=== PATIENT | female | born 1960 | race Caucasian/White ===

== ENCOUNTER 2019-04-17 07:43 | Day surgery (SDC) | payer OTHER ==
[2019-04-16 15:46] LABS: CLARITY,URINE CLEAR (Clear); COLOR,URINE STRAW (Yellow); GLUCOSE, URINE NEGATIVE (Neg); KETONES,URINE NEGATIVE (Neg); LEUKOCYTE ESTERASE ,URINE SMALL (Neg); NITRITES, URINE NEGATIVE (Neg); OCCULT BLOOD,URINE NEGATIVE (Neg); PH,URINE 6.5 (4.8-8.0); PROTEIN,URINE NEGATIVE (Neg); UROBILINOGEN,URINE 0.2 E.U/dL (0.2-1.0)
[2019-04-16 15:47] LABS: UA COLLECTION TYPE CLN CATCH MIDSTREAM
[2019-04-16 15:48] LABS: BASOPHILS % (AUTO) 0.7 % (0-1); EOSINOPHILS # (AUTO) 0.1 X10'3 (0-0.9); LYMPHOCYTES # (AUTO) 1.2 X10'3 (1.1-4.8); LYMPHOCYTES % (AUTO) 22.4 % (21-51); MEAN CORPUSCULAR HEMOGLOBIN 30.1 PG (27.0-31.0); MEAN CORPUSCULAR VOLUME 88.3 FL (78-98); MEAN PLATELET VOLUME 8.5 FL (7.4-10.4); MONOCYTES # (AUTO) 0.5 X10'3 (0-0.9); MONOCYTES % (AUTO) 9.5 % (2-12); NEUTROPHILS # (AUTO) 3.5 X10'3 (1.8-7.7); NEUTROPHILS % (AUTO) 66.4 % (42-75); PRE OP HEMATOCRIT 38.4 % (35.0-45.0); PRE OP HEMOGLOBIN 13.1 g/dL (12.0-16.0); PRE OP PLATELET COUNT 325 X10'3 (140-440); RED BLOOD COUNT 4.34 X10'6 (4.20-5.60)
[2019-04-16 16:01] LABS: MUCUS STRANDS NONE SEEN /LPF (Neg); SQUAMOUS EPITHELIAL CELL,UR FEW /LPF (FEW); TRANSITIONAL EPI CELLS,URINE FEW /HPF
[2019-04-16 16:03] LABS: BACTERIA,URINE FEW /HPF (Neg); RBC,URINE NONE SEEN /HPF (0-2); WBC,URINE 0-4 /HPF (0-4)
[2019-04-16 16:07] LABS: ALBUMIN 3.9 G/DL (3.4-5.0); ALBUMIN/GLOBULIN RATIO 1.2 (1.1-1.5); ALKALINE PHOSPHATASE 77 IU/L (46-116); BLOOD UREA NITROGEN 18 MG/DL (7-18); CALCIUM 9.9 MG/DL (8.5-10.1); CHLORIDE 107 MMOL/L (99-107); CREATININE 1.29 MG/DL (0.40-0.90); PRE OP ALT 23 U/L (30-65); PRE OP ANION GAP 6 (8-16); PRE OP AST 9 U/L (10-37); PRE OP BILIRUB, TOTAL 0.4 MG/DL (0.0-1.0); PRE OP GLUCOSE 93 MG/DL (70-104); PRE OP POTASSIUM 3.6 MMOL/L (3.4-5.1); PRE OP SODIUM 144 MMOL/L (135-145); TOTAL CARBON DIOXIDE 31.3 MMOL/L (24-32); TOTAL PROTEIN 7.1 G/DL (6.4-8.2); eGFR 42 ML/MIN
[2019-04-17] VITALS (13 sets, daily range): BP systolic 113–132; BP diastolic 68–82
[~2019-04-17] VITALS: Ht 165.1 cm; Wt 87.0 kg
[~2019-04-17 07:43] MED LIST: ASPI-611 PO; B COMPLEX; ESCI10TA54 PO; LEVO5TAB29 PO; OLME40TA18 PO; OMEGA 3; VITAMIN D
[2019-04-17] MEDS ORDERED: famotidine 20mg tablet PO ONE ×2 (08:45→13:25)
[2019-04-17] MEDS ORDERED: ringers solution, lacted 1,000 ML IV SCH ×2 (08:45→15:01)
[2019-04-17] MEDS ORDERED: ceFOXitin 2 GM ADDvantage bag 100 ML IV ONE (09:55)
[2019-04-17] MEDS ORDERED: ceFAZolin 1000mg inj ONE (13:01)
[2019-04-17] MEDS ORDERED: BUPIVAcaine/PF 2.5 mg/ml (0.25%) 30ml vial ONE (13:01)
[2019-04-17] MEDS ORDERED: sevoflurane 250ml liquid IH ONE (13:51)
[2019-04-17] MEDS ORDERED: fentaNYL/PF 50MCG/1 ML 2ML syringe ONE ×2 (13:55→14:06)
[2019-04-17] MEDS ORDERED: midazolam 2 mg/2 ml injection ONE (14:05)
[2019-04-17] MEDS ORDERED: LIDOcaine 2% (20mg/ml) 5ml vial ONE (14:05)
[2019-04-17] MEDS ORDERED: propofol inj 20 ML IV ONE (14:05)
[2019-04-17] MEDS ORDERED: rocuronium 10mg/ml inj IV ONE (14:05)
[2019-04-17] MEDS ORDERED: dexamethasone sod phosphate 4mg/ml inj. ONE (14:09)
[2019-04-17] MEDS ORDERED: neostigmine methylsulfate 1 MG/ML 10ml vial ONE (14:29)
[2019-04-17] MEDS ORDERED: glycopyrrolate 0.2mg/ml inj ONE (14:29)
[2019-04-17] MEDS ORDERED: ondansetron/PF 4mg/2ml inj ONE (14:29)
--- NOTE | 2019-04-17 14:40 | NUR ---
Received from OR via LINDA, accompanied by Anesthesiologist DR GARRETT and report given by Anesthesiologist. PT DROWSY, DENIES PAIN, ABDOMEN W/4 LAP SITES W/BANDAIDS CDI. Addendum: 04/17/19 at 1538 by Lakeisha Valle RN Amended: Links added.
[2019-04-17] MEDS ORDERED: esmolol inj. 10 ML IV ONE (14:54)
[2019-04-17] MEDS ORDERED: ePHEDrine 50MG/ML INJ. ONE (14:54)
[2019-04-17] MEDS ORDERED: meperidine/PF 25mg/ml syringe ONE (14:59)
[2019-04-17] MEDS ORDERED: ondansetron/PF 4mg/2ml inj IV PRN (15:05)
[2019-04-17] MEDS ORDERED: acetaminophen 1,000mg/100ml IV 100 ML IV PRN (15:05)
[2019-04-17] MEDS ORDERED: meperidine/PF 25mg/ml syringe IV PRN ×3 (15:05)
[2019-04-17] MEDS ORDERED: HYDROmorphone inj. 0.5 MG/0.5 ML DISP.SYRIN IV PRN ×2 (15:05)
[2019-04-17] MEDS ORDERED: traMADol 50MG tablet PO ONE (16:10)
--- NOTE | 2019-04-17 16:30 | NUR ---
D/C INSTRUCTIONS GIVEN AND GONE OVER W/PT WHO VERBALIZES UNDERSTANDING, PT D/CD TO HOME VIA W/C TO PRIVATE VEHICLE W/O INCIDENT. Addendum: 04/17/19 at 1646 by Lakeisha Valle RN Amended: Links added.
== END 2019-04-17 16:30 | disposition home or self-care (01) ==
LOC: PAS 07:43
PROVIDERS: ATTEND Surgery
DX: K80.12 Calculus of gallbladder with acute and chronic cholecystitis without obstruction (principal); I10 Essential (primary) hypertension; F41.9 Anxiety disorder, unspecified; M13.0 Polyarthritis, unspecified; Z88.5 Allergy status to narcotic agent; Z88.8 Allergy status to other drugs, medicaments and biological substances; Z79.899 Other long term (current) drug therapy; Z98.890 Other specified postprocedural states; Z96.651 Presence of right artificial knee joint; Z87.01 Personal history of pneumonia (recurrent)
CPT/HCPCS: 36415; 47562; 80053; 81001; 82948; 85025; 87077; 87088; 87186; J0690; J0694; J1100; J2001; J2175; J2250; J2405; J2704; J2710; J3010; J3490; J7120; 93005; A4215; A4618; A7000